=== PATIENT | male | born 1990 | race African-American/Black ===

== ENCOUNTER 2017-06-15 11:09 | Emergency (ER) | payer OTHER ==
[2017-06-15 11:15] VITALS: BP 132/78; PULSE 55; TEMP 98; BMI 21.9
--- NOTE | 2017-06-15 12:42 | PDOC ---
History of Present Illness <JamesUvaldo - Last Filed: 06/15/17 15:02> <Oneyda Rob - Last Filed: 06/15/17 15:16> - General Chief Complaint: Chest Pain Stated Complaint: CHEST PAIN Time Seen by Provider: 06/15/17 11:42 - History of Present Illness Initial Comments: 06/15/17 12:36 27 M with no PMH presents to ER with left sided chest pain for several weeks. Pt states that for the past 1-2 years he has had intermittent left sided chest pain. It is dull in character and non-radiating. He knows of no exacerbating or alleviating factors. It is not worse with deep inspiration, not worse with exertion, not associated with eating. Pt states that he actually notices it less when he runs or plays basketball. Pt denies F/C. Denies cough. Denies leg swelling. He denies h/o smoking, cocaine, or other drug use. Pt has 2 grandparents who had MIs in their 80s and 60s. No FH of early NE. Pt states that this episode of chest pain started weeks ago. He went to his PMD today and had an EKG done. The EKG showed an abnormality, and pt was sent to ER for cardiac enzymes. PMD: Dr. Corey Gates (Uvaldo Ramirez) Past History - Past Medical History Other medical history: none - Psycho/Social/Smoking Cessation Hx Anxiety: No Suicidal Ideation: No Smoking History: Never smoked Have you smoked in the past 12 months: No Information on smoking cessation initiated: No Hx Alcohol Use: No Drug/Substance Use Hx: No Substance Use Type: None <Uvaldo Ramirez - Last Filed: 06/15/17 15:02> <Oneyda Rob - Last Filed: 06/15/17 15:16> - Past Medical History Allergies/Adverse Reactions: Allergies Allergy/AdvReac Type Severity Reaction Status Date / Time peanut Allergy Verified 06/15/17 11:11 Home Medications: Ambulatory Orders NK [No Known Home Medication] 06/15/17 Review of Systems <Uvaldo Ramirez - Last Filed: 06/15/17 15:02> <Oneyda Rob - Last Filed: 06/15/17 15:16> - Review of Systems Comments:: 06/15/17 12:40 "GENERAL/CONSTITUTIONAL: No fever or chills. No weakness. HEAD, EYES, EARS, NOSE AND THROAT: No change in vision. No ear pain or discharge. No sore throat. GASTROINTESTINAL: No nausea, vomiting, diarrhea or constipation. GENITOURINARY: No dysuria, frequency, or change in urination. CARDIOVASCULAR: (+) chest pain. No shortness of breath. RESPIRATORY: No cough, wheezing, or hemoptysis. MUSCULOSKELETAL: No joint or muscle swelling or pain. No neck or back pain. SKIN: No rash NEUROLOGIC: No headache, vertigo, loss of consciousness, or change in strength/ sensation. ENDOCRINE: No increased thirst. No abnormal weight change. HEMATOLOGIC/LYMPHATIC: No anemia, easy bleeding, or history of blood clots. ALLERGIC/IMMUNOLOGIC: No hives or skin allergy. " (Uvaldo Ramirez) *Physical Exam <Uvaldo Ramirez - Last Filed: 06/15/17 15:02> <Oneyda Rob - Last Filed: 06/15/17 15:16> - Vital Signs Last Vital Signs Temp Pulse Resp BP Pulse Ox 98.0 F 55 L 16 132/78 100 06/15/17 11:12 06/15/17 11:12 06/15/17 11:12 06/15/17 11:12 06/15/17 11:12 - Physical Exam Comments: 06/15/17 12:40 "GENERAL: Awake, alert, and fully oriented, in no acute distress HEAD: No signs of trauma EYES: PERRLA, EOMI, sclera anicteric, conjunctiva clear ENT: Auricles normal inspection, hearing grossly normal, nares patent, oropharynx clear without exudates. Moist mucosa NECK: Normal ROM, supple, no lymphadenopathy, JVD, or masses LUNGS: Breath sounds equal, clear to auscultation bilaterally. No wheezes, and no crackles HEART: Regular rate and rhythm, normal S1 and S2, no murmurs, rubs or gallops ABDOMEN: Soft, nontender, normoactive bowel sounds. No guarding, no rebound. No masses EXTREMITIES: Normal range of motion, no edema. No clubbing or cyanosis. No cords, erythema, or tenderness NEUROLOGICAL: Cranial nerves II through XII grossly intact. Normal speech, normal gait SKIN: Warm, Dry, normal turgor, no rashes or lesions noted. " (Uvaldo Ramirez) Heart Score/ECG Review - History History: Slightly suspicious - Electrocardiogram EKG: Non specific repolarization disturbance - Age Age: </= 45 - Risk Factors Based on the list above the patient has:: No risk factors known <Uvaldo Ramirez - Last Filed: 06/15/17 15:02> <Oneyda Rob - Last Filed: 06/15/17 15:16> - ECG Impressions Comment:: 06/15/17 12:41 [address]KG with possible isolated ST elevation in V3. No reciprocal changes noted. No other ST elevations noted. no TW inversions. intervals wnl, no dagger Q waves, no delta waves. (Uvaldo Ramriez) ED Treatment Course - LABORATORY CBC & Chemistry Diagram: 06/15/17 12:27 06/15/17 12:27 <Uvaldo Ramirez - Last Filed: 06/15/17 15:02> - LABORATORY CBC & Chemistry Diagram: 06/15/17 12:27 06/15/17 12:27 <Oneyda Rob - Last Filed: 06/15/17 15:16> - ADDITIONAL ORDERS Additional order review: Laboratory Results 06/15/17 06/15/17 12:27 12:27 INR 1.19 H PTT (Actin FS) 32.9 Sodium 140 Potassium 4.0 Chloride 104 Carbon Dioxide 29 Anion Gap 7 L BUN 10 Creatinine 1.1 Creat Clearance w eGFR > 60 Random Glucose 81 Calcium 9.0 Magnesium 2.1 Total Bilirubin 0.9 AST 19 ALT 25 Alkaline Phosphatase 73 Creatine Kinase 540 H Troponin I < 0.02 Total Protein 7.1 Albumin 4.2 06/15/17 12:27 RBC 5.08 MCV 91.9 MCHC 32.3 RDW 13.3 MPV 9.2 Neutrophils % 58.7 Lymphocytes % 30.2 Monocytes % 8.1 Eosinophils % 2.4 Basophils % 0.6 - RADIOLOGY Radiograph Interpretation: 06/15/17 15:15 Chest X-Ray Reported by: Dr. Maxim Villegas Impression: No evidence of active pulmonary disease. (Oneyda Rob) Medical Decision Making <Uvaldo Ramirez - Last Filed: 06/15/17 15:02> <Oneyda Rob - Last Filed: 06/15/17 15:16> - Medical Decision Making 06/15/17 12:42 27 M with chest pain and questionable abnormality on EKG. Isolated ST elevation in V3 likely represents early repolarization rather than ischemia. Pt with no risk factors for ACS. No other causes of cardiac chest pain present on EKG. No evidence of ha/jacky-carditis. No evidence of HOCM. No PE risk factors (PERC and wells score 0). Pain likely msk. - Labs, trops - CXR 06/15/17 15:02 CBC,CMP WBC 4.7 K/mm3 (4.0-10.0) 06/15/17 12:27 RBC 5.08 M/mm3 (4.00-5.60) 06/15/17 12:27 Hgb 15.1 GM/dL (11.7-16.9) 06/15/17 12:27 Hct 46.7 % (35.4-49) 06/15/17 12:27 MCV 91.9 fl (80-96) 06/15/17 12: MCH 29.7 pg (25.7-33.7) 06/15/17 12:27 MCHC 32.3 g/dl (32.0-35.9) 06/15/17 12:27 RDW 13.3 % (11.9-15.9) 06/15/17 12:27 Plt Count 125 K/MM3 (134-434) L 06/15/17 12:27 MPV 9.2 fl (7.5-11.1) 06/15/17 12:27 Neutrophils % 58.7 % (42.8-82.8) 06/15/17 12: Lymphocytes % 30.2 % (8-40) 06/15/17 12:27 Monocytes % 8.1 % (3.8-10.2) 06/15/17 12:27 Eosinophils % 2.4 % (0-4.5) 06/15/17 12:27 Basophils % 0.6 % (0-2.0) 06/15/17 12:27 Sodium 140 mmol/L (136-145) 06/15/17 12:27 Potassium 4.0 mmol/L (3.5-5.1) 06/15/17 12:27 Chloride 104 mmol/L (98-107) 06/15/17 12:27 Carbon Dioxide 29 mmol/L (21-32) 06/15/17 12:27 Anion Gap 7 (8-16) L 06/15/17 12:27 BUN 10 mg/dL (7-18) 06/15/17 12:27 Creatinine 1.1 mg/dL (0.7-1.3) 06/15/17 12:27 Creat Clearance w eGFR > 60 (>60) 06/15/17 12:27 Random Glucose 81 mg/dL (74-106) 06/15/17 12:27 Calcium 9.0 mg/dL (8.5-10.1) 06/15/17 12:27 Magnesium 2.1 mg/dL (1.8-2.4) 06/15/17 12:27 Total Bilirubin 0.9 mg/dL (0.2-1.0) 06/15/17 12:27 AST 19 U/L (15-37) 06/15/17 12:27 ALT 25 U/L (12-78) 06/15/17 12:27 Alkaline Phosphatase 73 U/L (45-117) 06/15/17 12:27 Creatine Kinase 540 IU/L (39-308) H 06/15/17 12:27 Troponin I < 0.02 ng/ml (0.00-0.05) 06/15/17 12:27 Total Protein 7.1 g/dl (6.4-8.2) 06/15/17 12:27 Albumin 4.2 g/dl (3.4-5.0) 06/15/17 12:27 Pt reassessed, reports that the pain has slightly subsided. Discussed results with pt and mother, who express understanding that they need to follow up with a real estate loan officer to have his chest pain and EKG further evaluated. (Uvaldo Ramirez) *DC/Admit/Observation/Transfer - Discharge Dispostion Admit: No <Uvaldo Ramirez - Last Filed: 06/15/17 15:02> <Oneyda Rob - Last Filed: 06/15/17 15:16> Diagnosis at time of Disposition: Chest pain - Referrals Referrals: Corey Gates MD [Primary Care Provider] - Fab Bassett MD [Staff Physician] - - Patient Instructions Printed Discharge Instructions: DI for Atypical Chest Pain Additional Instructions: Please follow up with a real estate loan officer within 1 week for further evaluation of your chest pain and abnormal EKG. This may represent heart disease, which, if left untreated, can lead to serious illness, disability, or even . Call the number provided to make an appointment with our real estate loan officer, or ask your primary doctor for a referral if you prefer. Print Language: WELSH - Post Discharge Activity Work/School Note: Back to Work - Attestations Scribe Attestion: 06/15/17 14:05 Documentation prepared by Oneyda Rob, acting as medical billing service for Uvaldo Ramirez MD. (Oneyda Rob) Physician Attestion: 06/15/17 15:05 I, Dr. Uvaldo Ramirez MD, attest that this document has been prepared under my direction and personally reviewed by me in its entirety. I further attest, that it accurately reflects all work, treatment, procedures and medical decision -making performed by me. (Uvaldo Ramirez)
[2017-06-15 12:49] LABS: BASOPHIL 0.6 % (0-2.0); EOSINOPHIL 2.4 % (0-4.5); MCH 29.7 pg (25.7-33.7); MCHC 32.3 g/dl (32.0-35.9); MEAN CELL VOLUME 91.9 fl (80-96); MEAN PLT VOLUME 9.2 fl (7.5-11.1); NEUTROPHILS 58.7 % (42.8-82.8); PLATELET COUNT 125 K/MM3 (134-434); RDW 13.3 % (11.9-15.9); WHITE BLOOD COUNT 4.7 K/mm3 (4.0-10.0)
[2017-06-15 13:20] LABS: ALBUMIN 4.2 g/dl (3.4-5.0); ANION GAP 7 (8-16); BILIRUBIN,TOTAL 0.9 mg/dL (0.2-1.0); CO2 29 mmol/L (21-32); CREATININE 1.1 mg/dL (0.7-1.3); GLUCOSE,RANDOM 81 mg/dL (74-106); MAGNESIUM 2.1 mg/dL (1.8-2.4); SGOT/AST 19 U/L (15-37); SGPT/ALT 25 U/L (12-78); TOT PROT 7.1 g/dl (6.4-8.2)
[2017-06-15 13:21] LABS: INR 1.19 (0.82-1.09); PROTHROMBIN TIME (PATIENT) 13.1 SEC (9.98-11.88)
[2017-06-15 13:23] LABS: ALK PHOS 73 U/L (45-117); CPK 540 IU/L (39-308); TROPONIN I < 0.02 ng/ml (0.00-0.05)
[2017-06-15 13:24] LABS: ACTIVATED PTT 32.9 SECONDS (26.9-34.4)
--- NOTE | 2017-06-16 16:45 | EKG ---
Test Reason : Blood Pressure : / mmHG Vent. Rate : 045 BPM Atrial Rate : 045 BPM P-R Int : 150 ms QRS Dur : 088 ms QT Int : 492 ms P-R-T Axes : 042 083 065 degrees QTc Int : 425 ms SINUS BRADYCARDIA NONSPECIFIC ST AND T WAVE ABNORMALITY ABNORMAL ECG NO PREVIOUS ECGS AVAILABLE Confirmed by JOANA SLAUGHTER MD ([id number]) on 06/16/2017 4:44:34 PM Referred By: Confirmed By:JOANA SLAUGHTER MD
== END 2017-06-15 15:20 | disposition home or self-care (01) ==
LOC: JER 11:09
DX: R07.9 Chest pain, unspecified (principal); Z91.010 Allergy to peanuts
CPT/HCPCS: 36415; 71020-TC; 80053; 83735; 84484; 85025; 85610; 85730; 93005; 93010; 99283-25

== ENCOUNTER 2023-01-12 04:41 | Day surgery (SDC) | payer BC ==
[2023-01-12 11:52] VITALS: BMI 24.3
[2023-01-12 12:40] VITALS: TEMP 97.7
[2023-01-12 12:56] VITALS: RESP 18
[2023-01-12 13:59] VITALS: BP 112/63; PULSE 59
== END 2023-01-12 13:50 | disposition home or self-care (01) ==
LOC: JASU-ENDO 04:41
PROVIDERS: ATTEND Internal Medicine Gastroenterology
PROC: 0DJD8ZZ Inspection of Lower Intestinal Tract, Via Natural or Artificial Opening Endoscopic (ICD-10-PCS; principal; 2023-01-12 12:00)
DX: K64.8 Other hemorrhoids (principal)